=== PATIENT | male | born 1990 | race Two or more races ===

== ENCOUNTER → 2020-04-10 | Outpatient (CLI) | payer OTHER ==
[~2020-04-10] MED LIST: AMLO-211 PO; CARV-39 PO; CLON0.2T PO; FURO80TA3 PO; ISOS120T4 PO
[2020-04-10 14:36] LABS: BASOPHILS % (AUTO) 2 % (0-1); EOSINOPHILS % (AUTO) 2 % (1-7); LYMPHOCYTES % (AUTO) 39 % (22-44); MEAN CORPUSCULAR HEMOGLOBIN 32.3 pg (27.5-34.5); MEAN CORPUSCULAR HGB CONC 34.9 g/dL (33.2-36.2); MEAN PLATELET VOLUME 7.1 fL (7.4-10.4); MONOCYTES % (AUTO) 11 % (2-9); NEUTROPHILS % (AUTO) 47 % (42-75); PLATELET COUNT 131 x10^3/uL (130-400); RED BLOOD COUNT 3.13 x10^6/uL (4.38-5.82); RED CELL DISTRIBUTION WIDTH 15.1 % (9.4-14.8)
[2020-04-10 14:38] LABS: MD NO
[2020-04-10 14:43] LABS: INTERNATIONAL NORMALIZED RATIO 1.04 (0.93-1.1)
[2020-04-10 14:44] LABS: ALANINE AMINOTRANSFERASE 26 U/L (12-78); ALBUMIN 4.4 g/dL (3.4-5.0); ANION GAP 9 mmol/L (5-15); CALCIUM 9.2 mg/dL (8.5-10.1); CHLORIDE 100 mmol/L (98-107)
[2020-04-10 14:46] LABS: ALKALINE PHOSPHATASE 83 U/L (45-117); BILIRUBIN,TOTAL 0.5 mg/dL (0.2-1.0); TOTAL PROTEIN 8.5 g/dL (6.4-8.2)
== END | disposition home or self-care (01) ==
LOC: STAR 13:14
PROVIDERS: ATTEND Surgery
DX: Z01.812 Encounter for preprocedural laboratory examination (principal); Z20.828 Contact with and (suspected) exposure to other viral communicable diseases; N18.6 End stage renal disease
CPT/HCPCS: 36415; 80053; 85025; 85610; 85730; 93005; U0003

== ENCOUNTER 2020-04-14 14:39 | Day surgery (SDC) | payer OTHER ==
[~2020-04-14] VITALS: Ht 198.1 cm; Wt 111.1 kg
[~2020-04-14 14:39] MED LIST changes: +BUPIVACAINE/PF 0.25% ONE; +EPHEDRINE 50 MG/ML, 1ML IVPush PRN; +FENTANYL PF 100 MCG/2ML IV PRN; +HEPARIN 1,000 UNITS/ML, 10ML ONE; +HYDROmorphone 1 MG/ML, 1ML INJ IVPush PRN; +LIDOCAINE/PF 1%, 30ML ONE; +OXYcodone 5 MG/5 ML ORAL.SOL UDC PO PRN; +PAPAVERINE 30 MG/ML, 2ML ONE; +PROTAMINE SULFATE 10 MG/ML, 5ML ONE; +THROMBIN 5,000 UNIT VIAL TP ONE; +hydrALAzine 20 MG/ML, 1ML IV PRN
[2020-04-14 15:20] VITALS: BP 166/125
[2020-04-14] MEDS ORDERED: ACETAMINOPHEN 500 MG TABLET PO ONE (15:26)
[2020-04-14] MEDS ORDERED: CHLORHEXIDINE 15 ML UDC ONE (15:42)
[2020-04-14] MEDS ORDERED: CHLORHEXIDINE 15 ML UDC MM STA (15:46)
[2020-04-14] MEDS ORDERED: FENTANYL PF 100 MCG/2ML ONE (16:49)
[2020-04-14] MEDS ORDERED: PROPOFOL 10 MG/ML, 20ML ONE (17:34)
[2020-04-14] MEDS ORDERED: ONDANSETRON 2MG/ML, 2ML ONE (17:34)
[2020-04-14] MEDS ORDERED: DEXAMETHASONE 4 MG/ML, 1ML ONE (17:34)
[2020-04-14] MEDS ORDERED: CEFAZOLIN 1,000 MG ONE (17:34)
[2020-04-14] MEDS: LABETALOL 5MG/ML, 20ML IV PRN ×2 (18:11→18:30)
== END 2020-04-14 19:25 | disposition home or self-care (01) ==
LOC: OUT 14:39
PROVIDERS: ATTEND Surgery
DX: I12.0 Hypertensive chronic kidney disease with stage 5 chronic kidney disease or end stage renal disease (principal); N18.6 End stage renal disease; Z79.899 Other long term (current) drug therapy; Z82.49 Family history of ischemic heart disease and other diseases of the circulatory system
CPT/HCPCS: 36415; 36821; 84132; C1760; J0690; J1100; J1644; J2405; J2440; J2704; J2720; J3010